=== PATIENT | male | born 1965 | race Two or more races ===

== ENCOUNTER → 2018-03-25 | Outpatient (CLI) | payer OTHER ==
[2018-03-25 08:22] LABS: ABSOLUTE BASOPHILS # (AUTO) 0.1 10^3/uL (0.0-0.2); ABSOLUTE LYMPHOCYTES (AUTO) 1.6 10^3/uL (0.5-4.7); ABSOLUTE MONOCYTES (AUTO) 1.3 10^3/uL (0.1-1.4); ABSOLUTE NEUT (AUTO) 15.9 10^3/uL (1.7-8.2); BASOPHILS % (AUTO) 0.6 % (0-2); EOSINOPHILS % (AUTO) 0.1 % (0-6); HEMATOCRIT 46.6 % (37.9-51.0); HEMOGLOBIN 16.4 g/dL (13.5-17.0); LYMPHOCYTES % (AUTO) 8.2 % (13-45); MEAN CORPUSCULAR HEMOGLOBIN 33.5 pg (27.0-33.4); MEAN CORPUSCULAR HGB CONC 35.1 g/dL (32.0-36.0); MEAN CORPUSCULAR VOLUME 95 fl (80-97); MONOCYTES % (AUTO) 6.9 % (3-13); PLATELET COUNT 245 10^3/uL (150-450); RED BLOOD COUNT 4.89 10^6/uL (4.35-5.55); SEGMENTED NEUTROPHILS % (AUTO) 84.2 % (42-78); TOTAL CELLS COUNTED % (AUTO) 100 %; WHITE BLOOD COUNT 18.9 10^3/uL (4.0-10.5)
[2018-03-25 08:37] LABS: ALANINE AMINOTRANSFERASE 174 U/L (21-72); ALBUMIN 4.2 g/dL (3.5-5.0); ALKALINE PHOSPHATASE 101 U/L (38-126); ANION GAP 18 (5-19); ASPARTATE AMINO TRANSFERASE 87 U/L (17-59); BILIRUBIN,DIRECT 0.3 mg/dL (0.0-0.4); BILIRUBIN,TOTAL 0.6 mg/dL (0.2-1.3); BLOOD UREA NITROGEN 12 mg/dL (7-20); CARBON DIOXIDE 20 mmol/L (22-30); CHLORIDE 98 mmol/L (98-107); GLUCOSE 190 mg/dL (75-110); POTASSIUM 4.4 mmol/L (3.6-5.0); SODIUM 136.2 mmol/L (137-145); TOTAL PROTEIN 7.5 g/dL (6.3-8.2)
== END ==
LOC: LAB 07:57
PROVIDERS: ATTEND Internal Medicine Critical Care Medicine
DX: R06.83 Snoring (principal); Z72.0 Tobacco use; F41.0 Panic disorder [episodic paroxysmal anxiety]; M19.90 Unspecified osteoarthritis, unspecified site; J45.909 Unspecified asthma, uncomplicated; Z80.9 Family history of malignant neoplasm, unspecified; Z80.1 Family history of malignant neoplasm of trachea, bronchus and lung
CPT/HCPCS: 36415; 80053; 85025

== ENCOUNTER → 2018-04-19 | Outpatient (CLI) | payer OTHER ==
[2018-04-19 10:58] LABS: ABSOLUTE BASOPHILS # (AUTO) 0.1 10^3/uL (0.0-0.2); ABSOLUTE LYMPHOCYTES (AUTO) 1.7 10^3/uL (0.5-4.7); ABSOLUTE MONOCYTES (AUTO) 0.7 10^3/uL (0.1-1.4); ABSOLUTE NEUT (AUTO) 7.5 10^3/uL (1.7-8.2); BASOPHILS % (AUTO) 0.7 % (0-2); EOSINOPHILS % (AUTO) 0.1 % (0-6); HEMATOCRIT 46.4 % (37.9-51.0); HEMOGLOBIN 16.2 g/dL (13.5-17.0); LYMPHOCYTES % (AUTO) 17.1 % (13-45); MEAN CORPUSCULAR HEMOGLOBIN 33.3 pg (27.0-33.4); MEAN CORPUSCULAR VOLUME 95 fl (80-97); MONOCYTES % (AUTO) 6.9 % (3-13); PLATELET COUNT 243 10^3/uL (150-450); RED BLOOD COUNT 4.88 10^6/uL (4.35-5.55); RED CELL DISTRIBUTION WIDTH 12.7 % (11.5-14.0); SEGMENTED NEUTROPHILS % (AUTO) 75.2 % (42-78); TOTAL CELLS COUNTED % (AUTO) 100 %; WHITE BLOOD COUNT 9.9 10^3/uL (4.0-10.5)
[2018-04-19 11:01] LABS: INTERNATIONAL RATION (INR) 0.93; PROTHROMBIN TIME 12.9 SEC (11.4-15.4)
[2018-04-19 11:02] LABS: PARTIAL THROMBOPLASTIN TIME 24.7 SEC (23.5-35.8)
[2018-04-19 11:25] LABS: ANION GAP 13 (5-19); BLOOD UREA NITROGEN 8 mg/dL (7-20); CALCIUM 9.8 mg/dL (8.4-10.2); CARBON DIOXIDE 23 mmol/L (22-30); CHLORIDE 105 mmol/L (98-107); GLUCOSE 119 mg/dL (75-110); POTASSIUM 4.8 mmol/L (3.6-5.0); SODIUM 140.6 mmol/L (137-145)
== END ==
LOC: LAB 10:23
PROVIDERS: ATTEND Internal Medicine Critical Care Medicine
DX: J98.4 Other disorders of lung (principal); R04.2 Hemoptysis; R53.83 Other fatigue; G47.33 Obstructive sleep apnea (adult) (pediatric); M19.90 Unspecified osteoarthritis, unspecified site; G47.10 Hypersomnia, unspecified; R06.09 Other forms of dyspnea; J43.9 Emphysema, unspecified
CPT/HCPCS: 36415; 80048; 85025; 85610; 85730

== ENCOUNTER 2018-04-20 06:35 | Day surgery (SDC) | payer MEDICAID, OTHER ==
[2018-04-20] MEDS ORDERED: LIDOCAINE 2% JELLY 30 ML TUBE ONE (07:27)
[2018-04-20] MEDS ORDERED: NALOXONE HCL INJ/PF 0.4 MG/1 ML SDV ONE (07:27)
[2018-04-20] MEDS ORDERED: ONDANSETRON HCL INJ/PF 4 MG/2 ML SDV ONE (07:27)
[2018-04-20] MEDS ORDERED: DIPHENHYDRAMINE HCL 50 MG/ML VIAL ONE (07:27)
[2018-04-20] MEDS ORDERED: GLUCAGON,HUMAN RECOMB 1 MG INJ ONE (07:28)
[2018-04-20] MEDS ORDERED: EPINEPHRINE INJ 1 MG/10 ML DISP.SYRIN ONE (07:28)
[2018-04-20] MEDS ORDERED: FLUMAZENIL INJ 0.5 MG/5 ML VIAL ONE (07:28)
[2018-04-20] MEDS: LIDOCAINE 2% INJ (20 MG/ML) 20 ML MDV ONE ×3 (08:08→08:50)
[2018-04-20] MEDS: MIDAZOLAM 2 MG/2 ML INJ ONE ×11 (08:22→08:49)
[2018-04-20] MEDS: FENTANYL CITRATE INJ/PF 100 MCG/2 ML AMPUL ONE ×4 (08:37→08:49)
--- NOTE | 2018-04-20 09:31 | OPERATIVE REPORT E ---
Operative Report NAME: MONIKA OROSCO : 1965 AGE: 52Y DATE OF SURGERY: 04/20/2018 ROOM: HISTORY: The patient is a 52-year-old male who came in with a right lower lobe pulmonary nodule and hemoptysis for the last 3 to 4 weeks. Came in for flexible bronchoscopy. PROCEDURE: Flexible bronchoscopy with bronchial washing and bronchoalveolar lavage, right lower lobe. INDICATION: Right lower lobe nodule and chronic hemoptysis. SURGEON: ALEE JORGE M.D ANESTHESIA: Topical anesthesia using 2% lidocaine solution to a total dose of 25 mL. SEDATION: Conscious sedation using Versed to a total dose of 8 mg and fentanyl to total dose of 100 mcg. BLOOD LOSS: None. COMPLICATIONS: None. DESCRIPTION OF PROCEDURE: Consent was obtained from the patient. The patient verbalized understanding of the indication, reason, potential complications for the procedure. The patient was connected to the quality assurance monitor body, pulse oximetry, blood pressure/heart monitor, and respiratory monitor. Two percent lidocaine solution, 5 mL was given via nebulizer and 2% of the lidocaine solution 3 mL was given via atomizer. 2% lidocaine jelly was applied using swab to the posterior pharyngeal wall and 3 sprays of Hurricaine spray was applied to the throat. Flexible bronchoscope was inserted through the mouth guard and 1% lidocaine solution was given in 1 ml aliquots as the flexible bronchoscope was advanced. Versed was given at increments of 0.5 mg to a total dose of 8 mg. Fentanyl was given at increments of 25 mcg to a total dose of 100 mcg. Vocal cord appeared normal. There are no lesions around the vocal cord area. The trachea appeared normal. Kajal was sharp at the midline. Left lung bronchi appeared normal. No endobronchial lesions noted. Right mainstem bronchus appeared normal. Right middle lobe bronchi appeared normal. The right upper lobe and right lower lobe bronchi appeared normal. No endobronchial lesions noted. Bronchoalveolar lavage was performed on the right lower lobe. Bronchoalveolar lavage was performed on the right lower lobe to the anterior bronchopulmonary segment. Bronchial washing was performed in both lungs and more in the right lower lobe. No bleeding noted. Patient tolerated the procedure well. No adverse events noted intra and postoperatively. DICTATING PHYSICIAN: ALEE JORGE MD,HAYLEY,MPH [id number] PHY#: [id number] ID: [id number] JOB#: [id number] ACCT: [id number] cc:ALEE JORGE M.D. > BOBBI
[2018-04-20 10:04] VITALS: BP 142/95
[2018-04-20 12:09] LABS: FLUID COLOR COLORLESS; FLUID SOURCE LUNG; FLUID TYPE BRONCHIAL WASH
[2018-04-20 12:10] LABS: FLUID APPEARANCE CLEAR; FLUID VISCOSITY LIQUID
== END 2018-04-20 10:10 | disposition home or self-care (01) ==
LOC: END 06:35
PROVIDERS: ATTEND Internal Medicine Critical Care Medicine
DX: J98.4 Other disorders of lung (principal); R04.2 Hemoptysis; I10 Essential (primary) hypertension; Z72.0 Tobacco use; J44.9 Chronic obstructive pulmonary disease, unspecified
CPT/HCPCS: 31624; 87070; 87205; 87206; 87116; 87101; 89050; 87077; 87186; 87015; 88162; 88104 ×2; J2250; J3490 ×2; J3010; J0171; J1200; J1610; J2310; J2405

== ENCOUNTER 2019-06-06 10:52 | Emergency (ER) | payer MEDICAID ==
[2019-06-06] MEDS ORDERED: MORPHINE SULFATE 10 MG/ML INJ IV ONE (11:01)
[2019-06-06] MEDS ORDERED: LIDOCAINE 2% VISCOUS SOLN 15 ML UDCUP PO ONE (11:01)
--- NOTE | 2019-06-06 11:03 | ER Document Report ---
ED Medical Screen (RME) - General Chief Complaint: Swelling of Tongue Stated Complaint: TONGUE PAIN/POST BIOPSY ON THURSDAY Time Seen by Provider: 06/06/19 10:57 Primary Care Provider: ALEE JORGE MD [Primary Care Provider] - Follow up as needed TRAVEL OUTSIDE OF THE [place] IN LAST 30 DAYS: No - HPI Notes: 06/06/19 11:02 Patient is a 53-year-old male who had a biopsy of his tongue performed at [facility] this past presents complaining of the stitching being broken open and the packing falling out. He is also having increased pain and is having trouble swallowing because of the pain. Patient states that he has been able to keep some fluids in, but lost 10 pounds over the past few days. They did try to contact the surgeon, but he is not available at this time. No fever. They are concerned for cancer. I have treated and performed a rapid initial assessment of this patient. A comprehensive ED assessment and evaluation of the patient, analysis of test results and completion of medical decision making process will be conducted by additional ED providers. PHYSICAL EXAMINATION: GENERAL: Well-appearing, well-nourished and in no acute distress. A&Ox4. Answers questions appropriately. mouth: There is a noted site where the biopsy took place to the right lateral tongue with mild swelling associated. No obvious airway compromise. - Related Data Allergies/Adverse Reactions: No Known Allergies Allergy (Verified 04/20/18 06:40) Past Medical History - Past Medical History Cardiac Medical History: Reports: Hx Hypertension Denies: Hx Coronary Artery Disease, Hx Heart Attack Pulmonary Medical History: Reports: Hx Bronchitis, Hx COPD, Hx Pneumonia Denies: Hx Asthma Neurological Medical History: Denies: Hx Cerebrovascular Accident, Hx Seizures Musculoskeltal Medical History: Reports Hx Arthritis - KNEE, SHOULDERS, ELBOW, BACK Past Surgical History: Reports: Hx Herniorrhaphy, Hx Orthopedic Surgery - Immunizations Hx Diphtheria, Pertussis, Tetanus Vaccination: No - UNSURE Doctor's Discharge - Discharge Referrals: ALEE JORGE MD [Primary Care Provider] - Follow up as needed
[2019-06-06 11:30] LABS: APPEARANCE,URINE CLEAR; BILIRUBIN,URINE NEGATIVE (NEGATIVE); COLOR,URINE YELLOW; GLUCOSE, URINE NEGATIVE (NEGATIVE); KETONES,URINE NEGATIVE (NEGATIVE); LEUKOCYTE ESTERASE,URINE NEGATIVE (NEGATIVE); NITRITE,URINE NEGATIVE (NEGATIVE); PROTEIN,URINE NEGATIVE (NEGATIVE); URINE SPECIFIC GRAVITY 1.009; UROBILINOGEN,URINE NEGATIVE mg/dL (<2.0)
[2019-06-06] MEDS: NORMAL SALINE 1000 ML 1,000 ML IV PRN ×2 (12:05→12:07)
[2019-06-06 12:17] LABS: ABSOLUTE BASOPHILS # (AUTO) 0.1 10^3/uL (0.0-0.2); ABSOLUTE EOSINOPHILS # (AUTO) 0.4 10^3/uL (0.0-0.6); ABSOLUTE LYMPHOCYTES (AUTO) 2.4 10^3/uL (0.5-4.7); ABSOLUTE MONOCYTES (AUTO) 1.2 10^3/uL (0.1-1.4); ABSOLUTE NEUT (AUTO) 5.3 10^3/uL (1.7-8.2); BASOPHILS % (AUTO) 1.2 % (0-2); EOSINOPHILS % (AUTO) 4.5 % (0-6); HEMATOCRIT 51.7 % (37.9-51.0); HEMOGLOBIN 17.5 g/dL (13.5-17.0); LYMPHOCYTES % (AUTO) 25.3 % (13-45); MEAN CORPUSCULAR HEMOGLOBIN 31.2 pg (27.0-33.4); MEAN CORPUSCULAR HGB CONC 33.8 g/dL (32.0-36.0); MEAN CORPUSCULAR VOLUME 92 fl (80-97); MONOCYTES % (AUTO) 12.5 % (3-13); PLATELET COUNT 244 10^3/uL (150-450); RED CELL DISTRIBUTION WIDTH 13.9 % (11.5-14.0); SEGMENTED NEUTROPHILS % (AUTO) 56.5 % (42-78); TOTAL CELLS COUNTED % (AUTO) 100 %; WHITE BLOOD COUNT 9.4 10^3/uL (4.0-10.5)
[2019-06-06 12:42] LABS: ALBUMIN 3.7 g/dL (3.5-5.0); ALKALINE PHOSPHATASE 99 U/L (38-126); ANION GAP 12 (5-19); ASPARTATE AMINO TRANSFERASE 50 U/L (17-59); BILIRUBIN,DIRECT 0.4 mg/dL (0.0-0.4); BILIRUBIN,TOTAL 0.6 mg/dL (0.2-1.3); BLOOD UREA NITROGEN 3 mg/dL (7-20); CALCIUM 9.3 mg/dL (8.4-10.2); CARBON DIOXIDE 24 mmol/L (22-30); CHLORIDE 98 mmol/L (98-107); GLUCOSE 105 mg/dL (75-110); POTASSIUM 4.3 mmol/L (3.6-5.0); TOTAL PROTEIN 7.7 g/dL (6.3-8.2)
--- NOTE | 2019-06-06 13:32 | ER Document Report ---
ED General - General Chief Complaint: Swelling of Tongue Stated Complaint: TONGUE PAIN/POST BIOPSY ON THURSDAY Time Seen by Provider: 06/06/19 10:57 Primary Care Provider: ALEE JORGE MD [COMMUNITY BASED STAFF] - Follow up as needed TRAVEL OUTSIDE OF THE [place] IN LAST 30 DAYS: No - HPI Notes: Mr. Agosto is a 53-year-old male 4 days status post biopsy of a lesion of the right side of his tongue performed by Dr. Jaylen Gustafson at [facility]. Patient presents today reporting that the area is more swollen and painful and he does not have any way to get to the [place] so he decided come the emergency department. He denies fever, chills, or vomiting. Patient is a heavy cigarette smoker. Continues to smoke in excess of 1 pack cigarettes per day. He has COPD. He is followed by [facility]. Present medications include hydrochlorothiazide 25 mg daily, omeprazole 20 mg daily spironolactone 25 mg daily [place] Magic mouthwash as needed, viscous lidocaine as needed. Triamcinolone paste topically as needed furosemide 20 mg daily and nebulizers including DuoNeb and albuterol as needed. - Related Data Allergies/Adverse Reactions: No Known Allergies Allergy (Verified 04/20/18 06:40) Past Medical History - General Information source: Patient - Social History Smoking Status: Current Every Day Smoker Family History: Reviewed & Not Pertinent Patient has suicidal ideation: No Patient has homicidal ideation: No - Past Medical History Cardiac Medical History: Reports: Hx Hypertension Denies: Hx Coronary Artery Disease, Hx Heart Attack Pulmonary Medical History: Reports: Hx Bronchitis, Hx COPD, Hx Pneumonia Denies: Hx Asthma Neurological Medical History: Denies: Hx Cerebrovascular Accident, Hx Seizures Musculoskeletal Medical History: Reports Hx Arthritis - KNEE, SHOULDERS, ELBOW, BACK Past Surgical History: Reports: Hx Herniorrhaphy, Hx Orthopedic Surgery - Immunizations Hx Diphtheria, Pertussis, Tetanus Vaccination: No - UNSURE Review of Systems - Review of Systems Notes: Constitutional: Negative for fever. HENT: As per HPI. Eyes: Negative for visual changes. Cardiovascular: Negative for chest pain. Respiratory: Negative for shortness of breath. Gastrointestinal: Negative for abdominal pain, vomiting or diarrhea. Genitourinary: Negative for dysuria. Musculoskeletal: Negative for back pain. Skin: Negative for rash. Neurological: Negative for headaches, weakness or numbness. 10 point ROS negative except as marked above and in HPI. Physical Exam - Vital signs Vitals: Temp Pulse Resp BP Pulse Ox 97.5 F 99 20 170/86 H 96 06/06/19 10:56 06/06/19 10:56 06/06/19 10:56 06/06/19 10:56 06/06/19 10:56 - Notes Notes: GENERAL: Well-developed well-nourished appearing in no acute distress. SKIN: Good turgor no rashes. HEAD: Normocephalic atraumatic. EYES: PERRLA. EOMI. Conjunctivae and sclerae clear. EARS: CANALS AND TMS CLEAR. NOSE: CLEAR. MOUTH: Biopsy site is present right anterior tongue area with minimal surrounding edema. He has some white exudate present at this site as well and this is sore to palpation. Moist mucosa. Good dentition. No stridor or edema. No drooling. Throat: Clear. Patient is extremely hoarse and his says this is chronic. NECK: Supple. No masses or thyromegaly. No adenopathy. Carotids 2+ without bruits. No JVD. BACK: Symmetrical without tenderness. CHEST: Increased AP diameter. Respirations unlabored. Breath sounds clear and symmetrical. HEART: Regular rhythm. No murmur gallop or rub. ABDOMEN: Obese with multiple surgical scars. Soft nontender without masses, organomegaly or rebound. Bowel sounds normally active. No bruits. GENITALIA: Deferred. EXTREMITIES: No edema. No calf tenderness. Cap refill less than 1.5 seconds. Dorsalis pedis and posterior tibial pulses 3+ and symmetrical. NEUROLOGICAL: GCS 15. Alert and oriented x3. Normal gait. Fluent speech. Cranial nerves II through XII intact. Sensorimotor and cerebellar normal. Normal tone. PSYCHIATRIC: Appropriate affect. Course - Re-evaluation Re-evalutation: 06/06/19 14:56 Patient was given Toradol IV and subsequently Percocet p.o. His airway is stable. He has no fever and no elevation of white count. Findings were discussed with his ENT provider, Dr. Gustafson, by telephone. He will see this patient for follow-up in his office here in [place] in 48 hours. In the meantime we will place the patient on naproxen at home and give him a limited prescription for Percocet. Patient will also be started on clindamycin. He is to return here for new or worsening symptoms and otherwise follow-up with ENT as indicated. - Vital Signs Vital signs: Temp Pulse Resp BP Pulse Ox 97.4 F 88 18 165/88 H 95 06/06/19 13:46 06/06/19 13:46 06/06/19 13:46 06/06/19 13:46 06/06/19 13:46 - Laboratory Result Diagrams: 06/06/19 12:08 06/06/19 12:08 Laboratory results interpreted by me: 06/06/19 06/06/19 12:08 12:08 RBC 5.60 H Hgb 17.5 H Hct 51.7 H Sodium 133.7 L BUN 3 L Discharge - Discharge Clinical Impression: Wound infection tongue Condition: Stable Disposition: HOME, SELF-CARE Additional Instructions: Take prescribed medications as instructed. Return here as needed for new or worsening symptoms: Pain that is worsening or unimproved Uncontrolled vomiting High fever or shaking chills Overall worsening Keep your ENT appointment with Dr. Gustafson on Thursday of this week. Prescriptions: Clindamycin HCl 300 mg PO TID #30 capsule Oxycodone HCl/Acetaminophen [Percocet 5-325 mg Tablet] 1 - 2 tab PO Q4H PRN #15 tablet PRN Reason: Referrals: ALEE JORGE MD [COMMUNITY BASED STAFF] - Follow up as needed
[2019-06-06] MEDS ORDERED: KETOROLAC TROMETHAMINE INJ/PF 30 MG/1 ML SDV IV ONE (14:01)
[2019-06-06] MEDS ORDERED: OXYCODONE-ACETAMINOPHEN 5-325 MG TABLET PO ONE (14:18)
[2019-06-06 15:23] VITALS: BP 167/86
== END 2019-06-06 15:21 | disposition home or self-care (01) ==
LOC: ER 10:52
DX: T81.49XA Infection following a procedure, other surgical site, initial encounter (principal); K91.89 Other postprocedural complications and disorders of digestive system; Y84.8 Other medical procedures as the cause of abnormal reaction of the patient, or of later complication, without mention of misadventure at the time of the procedure; F17.210 Nicotine dependence, cigarettes, uncomplicated; I10 Essential (primary) hypertension
CPT/HCPCS: 99283; 96361; 96374; 96375; 36415; 85025; 80053; 81001; J3490; J1885; J2270; J7030

== ENCOUNTER 2020-06-15 13:10 | Emergency (ER) | payer MEDICAID ==
--- NOTE | 2020-06-15 14:10 | RADIOLOGY REPORT (SQ) ---
EXAM DESCRIPTION: CHEST SINGLE VIEW IMAGES COMPLETED DATE/TIME: 06/15/2020 1:53 pm REASON FOR STUDY: COPD, cough, short of breath, Covid exposure COMPARISON: 12/21/2015 EXAM PARAMETERS: NUMBER OF VIEWS: One view. TECHNIQUE: Single frontal radiographic view of the chest acquired. RADIATION DOSE: NA LIMITATIONS: None. FINDINGS: LUNGS AND PLEURA: No opacities, masses or pneumothorax. No pleural effusion. MEDIASTINUM AND HILAR STRUCTURES: No masses. Contour normal. HEART AND VASCULAR STRUCTURES: Heart normal in size. Normal vasculature. BONES: No acute findings. HARDWARE: Partially imaged ACDF hardware. OTHER: No other significant finding. IMPRESSION: No radiographic findings to suggest acute pulmonary process. TECHNICAL DOCUMENTATION: JOB ID: [id number] 2010 [employer]- All Rights Reserved Reading location - IP/workstation name: [email or web address]
[2020-06-15 14:23] LABS: ABSOLUTE LYMPHOCYTES (AUTO) 0.7 10^3/uL (0.5-4.7); ABSOLUTE MONOCYTES (AUTO) 0.3 10^3/uL (0.1-1.4); ABSOLUTE NEUT (AUTO) 3.6 10^3/uL (1.7-8.2); BASOPHILS % (AUTO) 0.5 % (0-2); EOSINOPHILS % (AUTO) 0.1 % (0-6); HEMATOCRIT 51.6 % (37.9-51.0); HEMOGLOBIN 17.4 g/dL (13.5-17.0); LYMPHOCYTES % (AUTO) 15.9 % (13-45); MEAN CORPUSCULAR HEMOGLOBIN 30.1 pg (27.0-33.4); MEAN CORPUSCULAR HGB CONC 33.7 g/dL (32.0-36.0); MEAN CORPUSCULAR VOLUME 89 fl (80-97); MONOCYTES % (AUTO) 6.4 % (3-13); PLATELET COUNT 210 10^3/uL (150-450); RED BLOOD COUNT 5.78 10^6/uL (4.35-5.55); RED CELL DISTRIBUTION WIDTH 15.3 % (11.5-14.0); SEGMENTED NEUTROPHILS % (AUTO) 77.1 % (42-78); TOTAL CELLS COUNTED % (AUTO) 100 %; WHITE BLOOD COUNT 4.6 10^3/uL (4.0-10.5)
[2020-06-15 14:28] LABS: APPEARANCE,URINE CLEAR; BILIRUBIN,URINE NEGATIVE (NEGATIVE); COLOR,URINE STRAW; GLUCOSE, URINE >=500 mg/dL (NEGATIVE); KETONES,URINE NEGATIVE (NEGATIVE); LEUKOCYTE ESTERASE,URINE NEGATIVE (NEGATIVE); NITRITE,URINE NEGATIVE (NEGATIVE); PROTEIN,URINE NEGATIVE (NEGATIVE); URINE SPECIFIC GRAVITY 1.007; UROBILINOGEN,URINE NEGATIVE mg/dL (<2.0)
[2020-06-15] MEDS ORDERED: LORAZEPAM INJ 2 MG/1 ML VIAL IV ONE (14:32)
[2020-06-15] MEDS ORDERED: NICOTINE 21 MG/24 HR PATCH.TD24 TD ONE (14:32)
--- NOTE | 2020-06-15 14:43 | ER Document Report ---
Entered by FLAKITA ZARAGOZA SCRIBE 06/15/20 1324 Acting as scribe for:SELENA ROMANO MD ED General - General Chief Complaint: Flu Symptoms Stated Complaint: BODY ACHES/CHILLS Time Seen by Provider: 06/15/20 13:21 Primary Care Provider: GIO CRUZ MD [Primary Care Provider] - Follow up as needed Mode of Arrival: Medic Information source: Patient, Emergency Med Personnel Notes: This 54 year old male patient with a history of hypertension and COPD presents to the ED today via EMS with complaints of chills, body aches, headache, shortness of breath, and malaise that started around 0530 this morning. Patient states that he went to bed early last night and had difficulty sleeping. He reports a frontal headache with pain behind his eyes. He notes recent exposure to his grandson who tested positive for COVID. He reports that he had to use both his albuterol nebulizer and inhaler this morning due to difficulty breathing. He states his work of breathing improved after receiving an albuterol treatment via EMS. He did receive a flu shot this year. Denies fever, nausea, vomiting, or diarrhea. TRAVEL OUTSIDE OF THE [place] IN LAST 30 DAYS: No - Related Data Allergies/Adverse Reactions: No Known Allergies Allergy (Verified 04/20/18 06:40) Past Medical History - General Information source: Patient, [facility] Records - Social History Smoking Status: Current Every Day Smoker Chew tobacco use (# tins/day): No Smoking Education Provided: No Frequency of alcohol use: Heavy Lives with: Spouse/Significant other Family History: Reviewed & Not Pertinent - Past Medical History Cardiac Medical History: Reports: Hx Hypertension Pulmonary Medical History: Reports: Hx Bronchitis, Hx COPD, Hx Pneumonia Musculoskeletal Medical History: Reports Hx Arthritis - KNEE, SHOULDERS, ELBOW, BACK Past Surgical History: Reports: Hx Herniorrhaphy, Hx Orthopedic Surgery - Immunizations Hx Diphtheria, Pertussis, Tetanus Vaccination: No - UNSURE Review of Systems - Review of Systems Constitutional: See HPI, Chills. denies: Fever EENT: See HPI, Eye pain Cardiovascular: No symptoms reported Respiratory: See HPI, Short of breath Gastrointestinal: See HPI. denies: Diarrhea, Nausea, Vomiting Genitourinary: No symptoms reported Male Genitourinary: No symptoms reported Musculoskeletal: See HPI, Muscle pain Skin: No symptoms reported Hematologic/Lymphatic: No symptoms reported Neurological/Psychological: See HPI, Headaches -: Yes All other systems reviewed and negative Physical Exam - Vital signs Vitals: Temp Pulse Resp BP Pulse Ox 98.0 F 109 H 24 H 178/96 H 93 06/15/20 13:25 06/15/20 13:25 06/15/20 13:25 06/15/20 13:25 06/15/20 13:25 - General General appearance: Alert In distress: None - HEENT Head: Normocephalic, Atraumatic Eyes: Normal Extraocular movements intact: Yes Pupils: PERRL Neck: Normal, Supple - Respiratory Respiratory status: No respiratory distress Chest status: Nontender Breath sounds: Wheezing - Mild, Other - Coarse breath sounds Chest palpation: Normal - Cardiovascular Rhythm: Regular Heart sounds: Normal auscultation Murmur: No - Abdominal Inspection: Normal Distension: No distension Bowel sounds: Normal Tenderness: Nontender - Abdomen soft Organomegaly: No organomegaly - Back Back: Normal, Nontender - Extremities General upper extremity: Normal inspection, Other - There is a Butrans patch for chronic pain on his left upper arm General lower extremity: Normal inspection. No: Edema - Neurological Neuro grossly intact: Yes Orientation: AAOx4 Ankur Coma Scale Eye Opening: Spontaneous [place] Coma Scale Verbal: Oriented [place] Coma Scale Motor: Obeys Commands Ankur Coma Scale Total: 15 - Psychological Associated symptoms: Normal affect, Normal mood - Skin Skin Temperature: Warm Skin Moisture: Dry Skin Color: Normal Course - Re-evaluation Re-evalutation: 06/15/20 16:54 The patient was evaluated during the global COVID-19 pandemic and that diagnosis was suspected/considered upon their initial presentation. Their evaluation, treatment and testing was consistent with current guidelines for patients who present with complaints or symptoms that may be related to COVID-19. The patient did test negative for coronavirus, however he did have a recent exposure to Covid positive patient. His exam is most consistent with a COPD exacerbation and chronic alcohol abuse. He did report that the breathing treatment from the EMS seem to help a lot more than his albuterol at home. That was a DuoNeb treatment. In reviewing pharmacy records patient does have ipratropium bromide solution vials at home and he s tates that he does have them but he has not been taking them. He was unaware of how helpful they might be for his breathing. He did fill a 10-day course of prednisone 20 mg twice daily for 5 days and once daily for 5 days. This was filled on 06/05/2020 so he would be running out yesterday or today. - Vital Signs Vital signs: Temp Pulse Resp BP Pulse Ox 98.4 F 109 H 14 179/96 H 94 06/15/20 14:02 06/15/20 13:25 06/15/20 15:01 06/15/20 15:00 06/15/20 15:01 - Laboratory Results Result Diagrams: 06/15/20 13:58 06/15/20 13:58 Laboratory Results Interpreted: 06/15/20 06/15/20 06/15/20 13:58 13:58 13:58 RBC 5.78 H Hgb 17.4 H Hct 51.6 H RDW 15.3 H D-Dimer 0.92 H Sodium 134.1 L Glucose 217 H ALT 56 H Urine Glucose (UA) 06/15/20 13:58 RBC Hgb Hct RDW D-Dimer Sodium Glucose ALT Urine Glucose (UA) >=500 H Critical Laboratory Results Reviewed: No Critical Results - Labs are unremarkable other than EtOH 186 - Radiology Results Radiology Results Interpreted: 06/15/20 16:30 Chest x-ray does not show acute cardiopulmonary process. Critical Radiology Results Reviewed: No Critical Results - EKG Interpretation by Me EKG shows normal: Sinus rhythm, [place], Intervals, QRS Complexes. abnormal: ST-T Waves - Borderline inferior T abnormalities Rate: Tachycardia - 113 P Waves: LAE When compared to previous EKG there are: No significant change Discharge - Discharge Clinical Impression: Viral syndrome COPD (chronic obstructive pulmonary disease) Qualifiers: COPD type: unspecified COPD Qualified Code(s): J44.9 - Chronic obstructive pulmonary disease, unspecified Acute alcoholic intoxication in alcoholism Qualifiers: Complication of substance-induced condition: uncomplicated Qualified Code(s): F10.220 - Alcohol dependence with intoxication, uncomplicated Condition: Stable Disposition: HOME, SELF-CARE Additional Instructions: Viral Syndrome The physician has diagnosed a viral infection. Viruses not only cause "colds," but can cause many different symptoms including generalized aching, fever, headache, cough, diarrhea, nausea, vomiting, and fatigue. The treatment, for the most part, is simply relief of symptoms. This means that antibiotics are usually not given. Rest, fluids, pain medications and, occasionally, medication for the specific symptoms that are most bothersome will be prescribed. Use good handwashing to avoid passing the virus to others. Shared toys should be cleaned with disinfectant. Clean the toilets, sinks, and counter surfaces in bathrooms. Launder clothing in hot water. Contact the physician if you develop any new or unusual symptoms such as severe headache, stiff neck, high fever, chest pain, productive cough, or sh ortness of breath. You should be rechecked if you don't see marked improvement within seven to 10 days. Your evaluation today suggest you are having a viral syndrome causing much of your symptoms. The symptoms would include an exacerbation of your COPD. Use the ipratropium bromide you have at home to mix in with your albuterol treatment every 6 hours. You should be running out of the prednisone you are prescribed 10 days ago. You prescribed an additional dose of prednisone to help you through this COPD exacerbation. Your Covid testing today was negative, and some of your lab work did not suggest a Covid infection at this time. Your alcohol level today was 186, so if you are having symptoms with an alcohol level that high, you have a very serious problem and should strongly consider going into alcohol rehab. Follow-up with your primary care provider next week for recheck. RETURN TO THE EMERGENCY ROOM IF ANY NEW OR WORSENING SYMPTOMS. Prescriptions: Prednisone [Deltasone 20 mg Tablet] 20 mg PO TID #15 tablet Referrals: GIO CRUZ MD [Primary Care Provider] - Follow up as needed I personally performed the services described in the documentation, reviewed and edited the documentation which was dictated to the scribe in my presence, and it accurately records my words and actions.
[2020-06-15 14:45] LABS: ALBUMIN 4.2 g/dL (3.5-5.0); ALKALINE PHOSPHATASE 108 U/L (38-126); ANION GAP 11 (5-19); ASPARTATE AMINO TRANSFERASE 58 U/L (17-59); BILIRUBIN,DIRECT 0.3 mg/dL (0.0-0.4); BILIRUBIN,TOTAL 0.8 mg/dL (0.2-1.3); BLOOD UREA NITROGEN 8 mg/dL (7-20); CALCIUM 8.8 mg/dL (8.4-10.2); CARBON DIOXIDE 24 mmol/L (22-30); CHLORIDE 99 mmol/L (98-107); CREATINE KINASE 137 U/L (55-170); GLUCOSE 217 mg/dL (75-110); POTASSIUM 4.7 mmol/L (3.6-5.0); TOTAL PROTEIN 7.7 g/dL (6.3-8.2)
[2020-06-15 14:51] LABS: ALCOHOL 186 mg/dL (NONE DETECTED)
[2020-06-15 15:20] LABS: C-REACTIVE PROTEIN < 5.0 mg/L (<10.0)
[2020-06-15] MEDS ORDERED: IPRATROPIUM/ALBUTEROL 0.5-2.5 MG/3 ML AMPUL NEB ONE (16:50)
[2020-06-15 17:15] VITALS: BP 170/93
--- NOTE | 2020-06-15 19:38 | EKG REPORT ---
SEVERITY:- BORDERLINE ECG - SINUS TACHYCARDIA PROBABLE LEFT ATRIAL ABNORMALITY BORDERLINE T ABNORMALITIES, INFERIOR LEADS : Confirmed by: Ryland Mukherjee MD 15-Jun-2020 19:36:45
== END 2020-06-15 17:15 | disposition home or self-care (01) ==
LOC: ER 13:10
DX: B34.9 Viral infection, unspecified (principal); J44.9 Chronic obstructive pulmonary disease, unspecified; F10.220 Alcohol dependence with intoxication, uncomplicated; M79.10 Myalgia, unspecified site; R68.83 Chills (without fever); R51.9 Headache, unspecified; R06.02 Shortness of breath; R53.81 Other malaise; Z20.822 Contact with and (suspected) exposure to COVID-19; F17.200 Nicotine dependence, unspecified, uncomplicated; I10 Essential (primary) hypertension
CPT/HCPCS: 93005; 94640; 99285; 96374; 36415; 80307; 82550; 82728; 83615; 85025; 0202U; 86140; 80053; 81001; 84484; 85379; 71045; 93010; J2060; J3490